=== PATIENT | female | born 1945 | race Caucasian/White ===

== ENCOUNTER 2017-07-12 19:16 | Emergency (ER) | payer MEDICARE, OTHER ==
[~2017-07-12 19:16] MED LIST: CETI10CA8 PO; DIP25 PO; HYDR-3250 PO; IBU800 PO; IBUP-1455 PO; LOR10 PO; LOR5/325 PO; OMEP-125 PO; PER PO
[2017-07-12] MEDS ORDERED: METF-410 PO (19:31)
[2017-07-12] MEDS ORDERED: LOSA25TA50 PO (19:31)
--- NOTE | 2017-07-12 19:45 | ER Report ---
History and Physical Time Seen By MD: 19:20 Hx. of Stated Complaint: C/O HIGH BLOOD PRESSURE. NOTED PRESSURE IN HANDS LAST NIGHT. HPI/ROS CHIEF COMPLAINT: Possible high blood pressure HISTORY OF PRESENT ILLNESS: Patient is a 71-year-old female who presents the ED with complaint of some possible high blood pressure. She states that she had noticed a little bit of pressure in her bilateral hands and thought that maybe she was having some high blood pressure. She took her blood pressure at home last night and noted that it was 150/70-80. She became concerned that this might be high for her. She denies any chest pain or shortness of breath. She has not noted a leg swelling. She states that she is taking some blood pressure medication and has been taking this without any issue. She denies any actual arm pain or jaw pain. Patient has not noted any nausea or vomiting. She has no history of heart or lung problems. REVIEW OF SYSTEMS: Respiratory: No cough, no dyspnea. Cardiovascular: No chest pain, no palpitations. Gastrointestinal: No vomiting, no abdominal pain. Musculoskeletal: No back pain. Allergies: Coded Allergies: codeine (Verified Allergy, Intermediate, RASH, 07/12/17) Uncoded Allergies: LATEX (Allergy, Intermediate, ITCHING, 01/15/12) STERI STRIPS (Allergy, Intermediate, SEVERE RASH, 01/15/12) Home Meds Reported Medications Losartan Potassium (LOSARTAN POTASSIUM) 25 Mg Tablet, 25 MG PO QDAY 07/12/17 Metformin Hcl (METFORMIN HCL) 500 Mg Tablet, 0.5 TAB PO BID, TAB 07/12/17 Omeprazole (OMEPRAZOLE) 20 Mg Capsule.dr, 1 CAP PO QDAY, CAP 09/06/15 Discontinued Reported Medications Cetirizine Hcl (Zyrtec) 10 Mg Capsule, 10 MG PO PRN 01/15/12 Loratadine (Claritin) 10 Mg Tab, 10 MG PO QDAY Y, 0 Refills 04/26/09 Discontinued Scripts Hydrocodone Bit/Acetaminophen (HYDROCODON-ACETAMINOPHEN 5-325) 1 Each Tablet, 1 EACH PO Q4-6H, #12 TAKE ONE TABLET BY MOUTH EVERY 4-6 HOURS NEEDED FOR PAIN Prov:DIEGO ESTES DO 09/06/15 Reviewed Nurses Notes: Yes Old Medical Records Reviewed: Yes Hx Smoking: Yes Smoking Status: Former Smoker Constitutional Vital Sign - Last 24 Hours 07/12/17 19:19 Temp 99.2 Pulse 72 Resp 14 B/P (MAP) 146/75 Pulse Ox 92 O2 Delivery Room Air Physical Exam General Appearance: The patient is alert, has no immediate need for airway protection and no current signs of toxicity. Patient appears to be in no acute distress. Eyes: Pupils equal and round no injection. Respiratory: Chest is non tender, lungs are clear to auscultation. Cardiac: regular rate and rhythm Gastrointestinal: Abdomen is soft and non tender, no masses, bowel sounds normal. Musculoskeletal: Neck: Neck is supple and non tender. Extremities have full range of motion and are non tender. Skin: No rashes or lesions. Medical Decision Making ED Course/Re-evaluation ED Course Patient is no longer having any of the hand symptoms she was having. She never had chest pain or shortness of breath at any time. Her blood pressure was normal here and does not sound to have actually been elevated at home either. Educated patient about blood pressures to be concerned about. Reassured patient that there is no concern for heart or stroke issues given her symptoms and and not concerned about her blood pressure. She may follow up with her primary care provider regarding her blood pressure. Decision to Disposition Date: Jul 12, 2017 Decision to Disposition Time: 19:43 Depart Departure Latest Vital Signs Vital Signs Date Time Temp Pulse Resp B/P (MAP) Pulse Ox O2 Delivery O2 Flow Rate FiO2 07/12/17 19:19 99.2 72 14 146/75 92 Room Air Impression: Primary Impression: Hypertension Condition: Improved Disposition: HOME OR SELF-CARE Referrals: DANIELLE BAIRD DO (PCP) Patient Instructions: Hypertension (ED) Additional Instructions: Stay well-hydrated. Follow-up with primary care provider in 2-3 days. If having any worsening or concerning symptoms may return to the emergency department. Problem Qualifiers Primary Impression: Hypertension Hypertension type: unspecified Qualified Codes: I10 - Essential (primary) hypertension DELGADO FRANK PA-C Jul 12, 2017 19:45
[2017-07-12 20:00] VITALS: BP 130/65
== END 2017-07-12 20:00 | disposition home or self-care (01) ==
LOC: ER 19:44
DX: I10 Essential (primary) hypertension (principal)
CPT/HCPCS: 99283

== ENCOUNTER → 2017-10-12 | Outpatient (CLI) | payer MEDICARE, OTHER ==
[~2017-10-12] MED LIST changes: +LOSA25TA50 PO; +METF-410 PO
--- NOTE | 2017-10-12 16:15 | RADIOLOGY IMAGING REPORT ---
FACILITY: [facility] PATIENT NAME: Abby Norton : 1945 MR: [id number] V: [id number] EXAM DATE: [id number] ORDERING PHYSICIAN: DANIELLE BAIRD TECHNOLOGIST: Location: [facility] Patient: Abby Norton : 1945 Visit/Account:[id number] Date of Sevice: 10/12/2017 Exam type: KNEE 3 VIEW RIGHT History: Pain Comparison: None. Findings: There is no acute fracture of the right knee. Joint spaces are preserved. No appreciable knee effus ion. Soft tissues are unremarkable. IMPRESSION: 1. No acute osseous abnormality of the right knee. Report Dictated By: Luciano Harrell MD at 10/12/2017 4:10 PM Report E-Signed By: Luciano Harrell MD at 10/12/2017 4:11 PM WSN:[email or web address]
--- NOTE | 2017-10-12 16:15 | RADIOLOGY IMAGING REPORT ---
FACILITY: [facility] [place] PATIENT NAME: Abby Norton : 1945 MR: [id number] V: [id number] EXAM DATE: [id number] ORDERING PHYSICIAN: DANIELLE BAIRD TECHNOLOGIST: [place] [facility] [place]by [place] : 1945 Visit/Account:[id number] Date of Sevice: 10/12/2017 Exam type: 4 views right femur History: Pain Comparison: None. Findings: There is no acute fracture or osseous abnormality of the right femur. Osteophyte involving the right greater trochanter appears chronic. What is seen of the hip and knee joint is unremarkable. Soft t issues are unremarkable. IMPRESSION: 1. No acute osseous abnormality of the right femur. Report Dictated By: Luciano Harrell MD at 10/12/2017 4:11 PM Report E-Signed By: Luciano Harrell MD at 10/12/2017 4:12 PM WSN:[email or web address]
--- NOTE | 2017-10-12 16:18 | RADIOLOGY IMAGING REPORT ---
FACILITY: [facility] PATIENT NAME: Abby Norton : 1945 MR: [id number] V: [id number] EXAM DATE: [id number] ORDERING PHYSICIAN: DANIELLE BAIRD TECHNOLOGIST: Location: [facility] Patient: Abby Norton : 1945 Visit/Account:[id number] Date of Sevice: 10/12/2017 Exam type: 2 views right hip History: Pain Comparison: None. Findings: There is no acute fracture or dislocation of the pelvis or hips. Minimal degenerative changes of the SI joints and hips are noted. Patient is mildly osteopenic. Calcifications the pelvis are likely p hleboliths. IMPRESSION: 1. No acute fracture or dislocation of the pelvis or hips. Report Dictated By: Luciano Harrell MD at 10/12/2017 4:12 PM Report E-Signed By: Luciano Harrell MD at 10/12/2017 4:13 PM WSN:[email or web address]
--- NOTE | 2017-10-12 16:19 | RADIOLOGY IMAGING REPORT ---
[place] [facility] [place] NAME: Abby Norton : 1945 MR: [id number] V: [id number] EXAM DATE: [id number] ORDERING PHYSICIAN: DANIELLE BAIRD TECHNOLOGIST: Location: [facility] Patient: Abby Norton : 1945 Visit/Account:[id number] Date of Sevice: 10/12/2017 Exam type: 3 views lumbar spine History: Low back pain Comparison: 08/07/2013. Findings: There are 5 nonrib-bearing lumbar vertebral bodies and a mild leftward scoliosis. Degenerative endpl ate changes are noted particularly at L2-3 but no acute fracture is seen. AP alignment is appropriat e. Vascular calcifications are noted. IMPRESSION: 1. Mild leftward scoliosis and degenerative changes but no acute fracture. Report Dictated By: Luciano Harrell MD at 10/12/2017 4:13 PM Report E-Signed By: Luciano Harrell MD at 10/12/2017 4:14 PM WSN:[email or web address]
== END ==
LOC: RAD 15:31
PROVIDERS: ATTEND Family Medicine
DX: M85.80 Other specified disorders of bone density and structure, unspecified site (principal); M41.86 Other forms of scoliosis, lumbar region; M47.896 Other spondylosis, lumbar region; I25.10 Atherosclerotic heart disease of native coronary artery without angina pectoris
CPT/HCPCS: 72100

== ENCOUNTER → 2018-07-13 | Outpatient (CLI) | payer MEDICARE, OTHER ==
[~2018-07-13] MED LIST changes: -LOSA25TA50 PO; +LOSA25TA57 PO; -METF-410 PO; +METF-450 PO
--- NOTE | 2018-07-13 16:35 | RADIOLOGY IMAGING REPORT ---
FACILITY: [facility] PATIENT NAME: Abby Norton : 1945 MR: [id number] V: [id number] EXAM DATE: ORDERING PHYSICIAN: DANIELLE BAIRD TECHNOLOGIST: Location: [facility] [place] Patient: Abby Norton : 1945 Visit/Account:[id number] Date of Sevice: 07/13/2018 Technique: CHEST PA LAT HISTORY: Cough COMPARISON: Chest radiographs July 18, 2014 Findings: The lungs are clear. No pleural effusion or pneumothorax. The cardiomediastinal silhouett e is unchanged. Impression: 1. No acute cardiopulmonary process. Report Dictated By: Eric Madden DO at 07/13/2018 4:28 PM Report E-Signed By: Eric Madden DO at 07/13/2018 4:29 PM WSN:[email or web address]
== END ==
LOC: RAD 15:18
PROVIDERS: ATTEND Family Medicine
DX: R05 Cough (principal)
CPT/HCPCS: 71046

== ENCOUNTER → 2018-07-27 | Outpatient (CLI) | payer MEDICARE, OTHER ==
--- NOTE | 2018-07-28 16:44 | RADIOLOGY IMAGING REPORT ---
FACILITY: [facility] PATIENT NAME: DOMINICK CHUN : [id number] MR: [id number] V: [id number] EXAM DATE: [id number] ORDERING PHYSICIAN: DANIELLE BAIRD TECHNOLOGIST: Radha Aparicio PROCEDURE:BILATERAL DIGITAL SCREENING MAMMOGRAM WITH CAD ASSISTED INTERPRETATION & 3D TOMOSYNTHESIS COMPARISON:Prior mammograms 02/13/15, 12/07/12, 09/08/11. INDICATIONS:screening FINDINGS: The breasts are heterogeneously dense which can obscure small masses. The parenchymal pattern has remained stable allowing for difference in mammographic technique & patient positioning. DIAGNOSTIC CATEGORY 1--NEGATIVE. RECOMMENDATIONS: ROUTINE MAMMOGRAM AND CLINICAL EVALUATION. IMPRESSION: BIRADS 1: Negative. No significant abnormality is seen. Dictated by: Valentina Wren M.D. on 07/27/2018 at 16:57 Transcribed by: DEYANIRA on 07/28/2018 at 8:35 Approved by: Valentina Wren M.D. on 07/28/2018 at 16:43 [facility]
== END ==
LOC: MAMO 01:22
PROVIDERS: ATTEND Family Medicine
DX: Z12.31 Encounter for screening mammogram for malignant neoplasm of breast (principal)
CPT/HCPCS: 77063; 77067

== ENCOUNTER → 2018-08-05 | Outpatient (CLI) | payer MEDICARE, OTHER ==
--- NOTE | 2018-08-05 14:12 | RADIOLOGY IMAGING REPORT ---
FACILITY: [facility] PATIENT NAME: Abby Norton : 1945 MR: [id number] V: [id number] EXAM DATE: ORDERING PHYSICIAN: DANIELLE BAIRD TECHNOLOGIST: [place] [facility] [place]by [place] : 1945 Visit/Account:[id number] Date of Sevice: 08/05/2018 KIDNEYS EXAMINATION: Renal ultrasound. History: History of kidney cysts COMPARISON STUDIES: Abdomen ultrasound December 06, 2015 FINDINGS: Kidneys: Right kidney- 10.5 x 4.7 x 5.6 cm Left kidney- 9.9 x 5.8 x 4.5 cm Uniform and symmetric blood flow in each kidney by Doppler ultrasound. Hydronephrosis: none. Resistive index on the right 0.56 on the left 0.58 There is a 2 cm cyst projecting from the lateral lower pole of the right kidney There is a 1.4 cm cyst projecting from the medial aspect upper pole the left kidney. There is a 1.2 cm cyst superior pole of the left kidney and a 1 cm cyst lower pole the left kidney Bladder: Prevoid volume 438 mL. Post for residual 14 mL. Bilateral ureteral jets are present Abdominal aorta and IVC: Aorta and IVC are patent by Doppler ultrasound. IMPRESSION: Bilateral renal cysts as described Report Dictated By: Valentina Wren MD at 08/05/2018 2:03 PM Report E-Signed By: Valentina Wren MD at 08/05/2018 2:06 PM WSN:[email or web address]
== END ==
LOC: MAMO 01:55
PROVIDERS: ATTEND Family Medicine
DX: N28.1 Cyst of kidney, acquired (principal)
CPT/HCPCS: 76705

== ENCOUNTER 2018-08-17 15:08 | Emergency (ER) | payer MEDICARE, OTHER ==
[2018-08-17] MEDS ORDERED: ASPIRIN 81 MG CHEW PO ONE (15:15)
[2018-08-17 15:27] LABS: PLATELET COUNT, AUTOMATED 409 K/uL (150-450)
--- NOTE | 2018-08-17 15:32 | EKG ---
FACILITY: [facility] PATIENT NAME: DOMINICK CHUN : [id number] MR: [id number] V: [id number] EXAM DATE: ORDERING PHYSICIAN: JESÚS HURD TECHNOLOGIST: YANI Test Reason : CP Blood Pressure : / mmHG Vent. Rate : 083 BPM Atrial Rate : 083 BPM P-R Int : 138 ms QRS Dur : 132 ms QT Int : 400 ms P-R-T Axes : 052 -30 029 degrees QTc Int : 470 ms Normal sinus rhythm Left axis deviation Right bundle branch block Abnormal ECG No previous ECGs available Confirmed by YOVANY LEBLANC ([id number]) on 08/17/2018 4:40:38 PM Referred By: VANNESSA Confirmed By:YOVANY LEBLANC
--- NOTE | 2018-08-17 15:36 | ER Report ---
History and Physical Time Seen By MD: 15:25 Hx. of Stated Complaint: chest pain on and off for 2 weeks. complaints of shortness of breath, nausea, and heartburn HPI/ROS CHIEF COMPLAINT: Chest pain HISTORY OF PRESENT ILLNESS: 72-year-old female comes emergency Department with pleuritic chest pain parasternal and costal sternal border happen when she was lifting something heavy about 45 days ago comes and goes intermittent last few seconds reproducible with certain motions and with lifting activity no shortness of breath nausea vomiting diarrhea fever chills no pain radiation no additional complaints noted no history of cardiac abnormalities REVIEW OF SYSTEMS: Respiratory: No cough, no dyspnea. Cardiovascular: Chest pain or palpitation Gastrointestinal: No vomiting, no abdominal pain. Musculoskeletal: No back pain. Remainder of the 14 system rev: Yes Allergies: Coded Allergies: codeine (Verified Allergy, Intermediate, RASH, 07/12/17) Uncoded Allergies: LATEX (Allergy, Intermediate, ITCHING, 01/15/12) STERI STRIPS (Allergy, Intermediate, SEVERE RASH, 01/15/12) Home Meds Reported Medications Losartan Potassium (LOSARTAN POTASSIUM) 25 Mg Tablet, 25 MG PO QDAY 07/12/17 Metformin Hcl (METFORMIN HCL) 500 Mg Tablet, 0.5 TAB PO BID, TAB 07/12/17 Omeprazole (OMEPRAZOLE) 20 Mg Capsule.dr, 1 CAP PO QDAY, CAP 09/06/15 Reviewed Nurses Notes: Yes Old Medical Records Reviewed: Yes Hx Smoking: Yes Smoking Status: Former Smoker Constitutional Vital Sign - Last 24 Hours 08/17/18 08/17/18 08/17/18 15:12 15:13 15:23 Pulse 93 77 Resp 16 17 B/P (MAP) 133/86 (102) 133/86 Pulse Ox 94 90 O2 Delivery Room Air Physical Exam General Appearance: The patient is alert, has no immediate need for airway protection and no current signs of toxicity. [ ] Eyes: Pupils equal and round no injection. Respiratory: Chest is non tender, lungs are clear to auscultation. Cardiac: regular rate and rhythm [ ] Gastrointestinal: Abdomen is soft and non tender, no masses, bowel sounds normal. Musculoskeletal: Neck: Neck is supple and non tender. Extremities have full range of motion and are non tender. Skin: No rashes or lesions. [ ] DIFFERENTIAL DIAGNOSIS: After history and physical exam differential diagnosis was considered for atypical chest pain was his goal chest pain mucker infarction and STEMI pulmonary embolus aortic dissection Medical Decision Making Data Points Result Diagram: 08/17/18 1518 08/17/18 1518 Laboratory Hematology Test 08/17/18 15:18 Red Blood Count 5.06 M/uL (4.17-5.56) Mean Corpuscular Volume 89.6 fL (80.0-96.0) Mean Corpuscular Hemoglobin 29.7 pg (26.0-33.0) Mean Corpuscular Hemoglobin Concent 33.1 g/dL (32.0-36.0) Red Cell Distribution Width 13.3 % (11.5-14.5) Mean Platelet Volume 8.3 fL (7.2-11.1) Neutrophils (%) (Auto) 61.4 % (39.4-72.5) Lymphocytes (%) (Auto) 25.4 % (17.6-49.6) Monocytes (%) (Auto) 7.9 % (4.1-12.4) Eosinophils (%) (Auto) 3.8 % (0.4-6.7) Basophils (%) (Auto) 1.5 % (0.3-1.4) Nucleated RBC Relative Count (auto) 0.0 /100WBC Neutrophils # (Auto) 6.3 K/uL (2.0-7.4) Lymphocytes # (Auto) 2.6 K/uL (1.3-3.6) Monocytes # (Auto) 0.8 K/uL (0.3-1.0) Eosinophils # (Auto) 0.4 K/uL (0.0-0.5) Basophils # (Auto) 0.2 K/uL (0.0-0.1) Nucleated RBC Absolute Count (auto) 0.00 K/uL D-Dimer Quantitative (PE/DVT) < 0.27 ug/ml (0-0.50) Sodium Level 139 mmol/L (137-145) Potassium Level 4.2 mmol/L (3.5-5.0) Chloride Level 104 mmol/L (98-107) Carbon Dioxide Level 24 mmol/L (22-31) Blood Urea Nitrogen 32 mg/dl (7-18) Creatinine 0.80 mg/dl (0.52-1.04) Glomerular Filtration Rate Calc > 60.0 Random Glucose 119 mg/dl (75-110) Calcium Level 10.0 mg/dl (8.4-10.2) Total Bilirubin 0.3 mg/dl (0.2-1.3) Aspartate Amino Transf (AST/SGOT) 17 U/L (0-35) Alanine Aminotransferase (ALT/SGPT) 26 U/L (0-56) Alkaline Phosphatase 73 U/L (0-126) Troponin I < 0.012 ng/ml Total Protein 8.5 g/dl (6.3-8.2) Albumin 4.8 g/dl (3.5-5.0) Chemistry Test 08/17/18 15:18 White Blood Count 10.3 k/uL (4.5-11.0) Red Blood Count 5.06 M/uL (4.17-5.56) Hemoglobin 15.0 g/dL (12.0-16.0) Hematocrit 45.4 % (34.0-47.0) Mean Corpuscular Volume 89.6 fL (80.0-96.0) Mean Corpuscular Hemoglobin 29.7 pg (26.0-33.0) Mean Corpuscular Hemoglobin Concent 33.1 g/dL (32.0-36.0) Red Cell Distribution Width 13.3 % (11.5-14.5) Platelet Count 409 K/uL (150-450) Mean Platelet Volume 8.3 fL (7.2-11.1) Neutrophils (%) (Auto) 61.4 % (39.4-72.5) Lymphocytes (%) (Auto) 25.4 % (17.6-49.6) Monocytes (%) (Auto) 7.9 % (4.1-12.4) Eosinophils (%) (Auto) 3.8 % (0.4-6.7) Basophils (%) (Auto) 1.5 % (0.3-1.4) Nucleated RBC Relative Count (auto) 0.0 /100WBC Neutrophils # (Auto) 6.3 K/uL (2.0-7.4) Lymphocytes # (Auto) 2.6 K/uL (1.3-3.6) Monocytes # (Auto) 0.8 K/uL (0.3-1.0) Eosinophils # (Auto) 0.4 K/uL (0.0-0.5) Basophils # (Auto) 0.2 K/uL (0.0-0.1) Nucleated RBC Absolute Count (auto) 0.00 K/uL D-Dimer Quantitative (PE/DVT) < 0.27 ug/ml (0-0.50) Glomerular Filtration Rate Calc > 60.0 Calcium Level 10.0 mg/dl (8.4-10.2) Total Bilirubin 0.3 mg/dl (0.2-1.3) Aspartate Amino Transf (AST/SGOT) 17 U/L (0-35) Alanine Aminotransferase (ALT/SGPT) 26 U/L (0-56) Alkaline Phosphatase 73 U/L (0-126) Troponin I < 0.012 ng/ml Total Protein 8.5 g/dl (6.3-8.2) Albumin 4.8 g/dl (3.5-5.0) Coagulation Test 08/17/18 15:18 D-Dimer Quantitative (PE/DVT) < 0.27 ug/ml ED Course/Re-evaluation ED Course 72-year-old female pleuritic reproducible muscular skeletal chest pain palpably tender in the costochondral area felt better with some Toradol pain is almost subsequently resolved this is clearly noncardiac in nature EKG was normal troponins cardiac markers chest x-ray all within normal limits patient be discharged costochondritis advised take ibuprofen 800 mg 3 times a day for 7 days Decision to Disposition Date: Aug 17, 2018 Decision to Disposition Time: 16:15 Depart Departure Latest Vital Signs Vital Signs Date Time Temp Pulse Resp B/P (MAP) Pulse Ox O2 Delivery O2 Flow Rate FiO2 08/17/18 15:23 77 17 90 08/17/18 15:13 133/86 Room Air Impression: Primary Impression: Costochondritis Condition: Improved Disposition: HOME OR SELF-CARE Referrals: DANIELLE BAIRD DO (PCP) 5 Days Patient Instructions: Costochondritis (DC) JESÚS HURD MD Aug 17, 2018 15:36
[2018-08-17] MEDS ORDERED: KETOROLAC 60 MG/2 ML VIAL IM ONE (15:40)
[2018-08-17] MEDS ORDERED: KETOROLAC 30 MG/ML VIAL IVP ONE (15:45)
--- NOTE | 2018-08-17 15:45 | RADIOLOGY IMAGING REPORT ---
[place] [facility] [place] NAME[place] Abby Norton : 1945 MR: [id number] V: [id number] EXAM DATE: ORDERING PHYSICIAN: JESÚS HURD TECHNOLOGIST: Location: [facility] Patient: Abby Norton : 1945 Visit/Account:[id number] Date of Sevice: 08/17/2018 Exam type: CHEST PA LAT History: Chest pain x2 weeks Comparison: July 13, 2018 Findings: There is mild chronic peribronchial thickening bilaterally. There is no evidence of acute appearing infiltrates , pleural effusions or overt pulmonary edema. The cardiac silhouette is normal in size. There are mild spondylotic changes of the thoracic spine. Surgical clips are present right upper qu adrant of abdomen.. IMPRESSION: 1. Mild chronic peribronchial thickening bilaterally although no evidence of acute appearing pulmona ry consolidation Report Dictated By: Valentina Wren MD at 08/17/2018 3:39 PM Report E-Signed By: Valentina Wren MD at 08/17/2018 3:41 PM WSN:[email or web address]
[2018-08-17 16:00] VITALS: BP 122/61
== END 2018-08-17 16:30 | disposition home or self-care (01) ==
LOC: ER 15:30
DX: M94.0 Chondrocostal junction syndrome [Tietze] (principal)
CPT/HCPCS: 71046; 84484; 85025; 85379; 93005; 96374; 99284; A9270; J1885; 82040; 82247; 82310; 82374; 82435; 82565; 82947; 84075; 84132; 84155; 84295; 84450; 84460; 84520